=== PATIENT | female | born 1955 | race Caucasian/White ===

== ENCOUNTER → 2020-11-09 | Outpatient (CLI) | payer BC ==
[2020-11-09 10:15] LABS: Basophils % (A) 1 %; Eosinophils # (A) 0.3 k/uL (0-0.7); Eosinophils % (A) 5 %; HCT 44.3 % (34.0-46.0); Lymphocytes # (A) 1.3 k/uL (1.0-4.8); Lymphocytes % (A) 24 %; MCH 30.1 pg (25.0-35.0); MCHC 33.8 g/dL (31.0-37.0); MCV 89.1 fL (80.0-100.0); Mean Platelet Volume 6.5; Monocytes # (A) 0.3 k/uL (0-1.0); Monocytes % (A) 6 %; Neutrophils # (A) 3.3 k/uL (1.3-7.7); Neutrophils % (A) 63 %; Platelet Count 332 k/uL (150-450); RBC 4.98 m/uL (3.80-5.40); RDW 12.8 % (11.5-15.5); WBC 5.3 k/uL (3.8-10.6)
[2020-11-09 10:29] LABS: Prothrombin Time 10.7 sec (9.0-12.0)
[2020-11-09 10:37] LABS: Potassium 4.2 mmol/L (3.5-5.1)
== END | disposition home or self-care (01) ==
LOC: LABPAT 09:06
PROVIDERS: ATTEND Orthopaedic Surgery
DX: Z01.812 Encounter for preprocedural laboratory examination (principal); M17.12 Unilateral primary osteoarthritis, left knee; Z22.322 Carrier or suspected carrier of Methicillin resistant Staphylococcus aureus; R94.31 Abnormal electrocardiogram [ECG] [EKG]
CPT/HCPCS: 36415; 80051; 85025; 85610; 87070; 93005

== ENCOUNTER 2020-11-22 07:09 | Day surgery (SDC) | payer BC, OTHER ==
[2020-11-10 16:15] VITALS: BMI 35.4
--- NOTE | 2020-11-21 13:57 | HP ---
HISTORY AND PHYSICAL CHIEF COMPLAINT: Left knee pain. HISTORY OF PRESENT ILLNESS: Patient is a 65-year-old retired female who presents with progressive left knee pain for the past several years, worsening recently. She is having pain with normal activities. She notes giving way. She has swelling and stiffness. She has tried medications, injections, along with exercise programs without much relief. She has also tried weight loss. PAST MEDICAL HISTORY: Significant for hypertension and peptic ulcer disease. PAST SURGICAL HISTORY: Significant for left knee arthroscopy, right shoulder surgery, left foot surgery, section, and appendectomy. CURRENT MEDICATIONS: Carafate, lisinopril, Tylenol with codeine. ALLERGIES: SHE HAS ALLERGIES TO DILAUDID AND BIAXIN. FAMILY HISTORY: Significant for diabetes and cancer along with heart disease. SOCIAL HISTORY: Negative for current tobacco or alcohol use. REVIEW OF SYSTEMS: Sixteen-point review of systems otherwise reviewed and is noncontributory. PHYSICAL EXAMINATION: On examination, the patient is approximately 5 foot 9, 240 pounds of endomorphic habitus. HEENT exam is nonfocal. Neck is supple. She has painless passive motion of the left hip. Straight leg raise is negative. Active motion left knee -14 to 100 degrees of flexion. She has a moderate effusion. She is tender about the medial joint line. Collaterals are stable, Raghav is negative, Breana's is equivocal. She has genu varum alignment. Her distal neurovascular exam appears intact in the left lower extremity. Weightbearing notch, lateral and Merchant views of the left knee obtained in the office show severe medial and patellofemoral compartment narrowing with [id number] changes along with subchondral sclerosis and spurring. IMPRESSION: 1. Left knee severe medial and patellofemoral compartment osteoarthrosis. 2. Increased body mass index. RECOMMENDATIONS: I talked to the patient at length regarding her condition and treatment options. At this point, she remains quite symptomatic, having pain and mechanical symptoms related to her osteoarthrosis despite extensive conservative measures. After thorough discussion, she opts to proceed with surgery. We will plan to proceed with left total knee arthroplasty. We will institute DVT prophylaxis postoperatively. Risks and benefits were discussed at length in layman's terms. MMODL / IJN: [id number] /
[~2020-11-22 07:09] MED LIST: ACETAMINOPHEN TAB 500 MG TAB PO PRN; DEXAMETHASONE SOD PHOSPHATE 4 MG/ML 1 ML VIAL IV ONE; MELOXICAM 7.5 MG TAB PO PRN; ONDANSETRON 4 MG/2 ML VIAL IVP ONE; ROPIVACAINE/EPI/CLONIDINE/KET 50 ML SYRINGE MISCELLANE PRN; TRANEXAMIC ACID 1,000 MG in SODIUM CHLORIDE 0.9% 100 ML IVPB PRN
[2020-11-22] MEDS ORDERED: LIDOCAINE 1% (10MG/ML) FOR IV START INTRADERMA ONE (08:50)
[2020-11-22] MEDS: LACTATED RINGERS 1,000 ML IV SCH ×2 (08:57→09:42)
[2020-11-22] MEDS: MIDAZOLAM 2 MG/2 ML VIAL IV PRN ×2 (09:03→09:15)
[2020-11-22] MEDS: fentaNYL (PF) 50 MCG/ML 2 ML AMP IV PRN ×2 (09:05→09:16)
[2020-11-22] MEDS ORDERED: PROPOFOL 10 MG/ML 20 ML VIAL IV ONE (09:42)
[2020-11-22] MEDS ORDERED: TRANEXAMIC ACID 1,000 MG/10 ML VIAL ONE (09:42)
[2020-11-22] MEDS ORDERED: LIDOCAINE 1% INJ 10MG/ML (20 ML MDV) ONE (09:42)
[2020-11-22] MEDS ORDERED: LABETALOL 5 MG/ML VIAL MDV ONE (09:42)
[2020-11-22] MEDS ORDERED: ROCURONIUM 10 MG/ML (5 ML VIAL) IV ONE (09:42)
[2020-11-22] MEDS ORDERED: GLYCOPYRROLATE 0.2 MG/ML 2 ML VIAL ONE (09:42)
[2020-11-22] MEDS ORDERED: SUCCINYLCHOLINE CHLORIDE 100 MG/5 ML SYR IV ONE (09:42)
[2020-11-22] MEDS ORDERED: ROPIVACAINE 5 MG/ML 30 ML VIAL ONE (09:42)
[2020-11-22] MEDS ORDERED: fentaNYL (PF) 50 MCG/ML 2 ML AMP ONE (09:42)
[2020-11-22] MEDS ORDERED: SODIUM CHLORIDE 0.9% (PF) 10 ML VIAL ONE (09:42)
[2020-11-22] MEDS ORDERED: SODIUM CHLORIDE 0.9% 100 ML BAG ONE (09:42)
[2020-11-22] MEDS ORDERED: NEOSTIGMINE 1 MG/ML 10 ML VIAL ONE (09:42)
[2020-11-22] MEDS ORDERED: ceFAZolin 3,000 MG in SODIUM CHLORIDE 0.9% IRRIGATIO 3,000 ML IRRIGATION ONE (10:12)
[2020-11-22] MEDS ORDERED: NALOXONE 0.4 MG/ML 1 ML VIAL IV PRN (11:32)
[2020-11-22] MEDS ORDERED: HYDROcodone/APAP 5-325MG 1 EACH TAB PO PRN (11:32)
--- NOTE | 2020-11-22 11:59 | P.OP ---
Date of Procedure: 11/22/20 Preoperative Diagnosis: Left knee severe tricompartmental osteoarthrosis Postoperative Diagnosis: Same Procedure(s) Performed: Left total knee arthroplastycementedposterior stabilized Implants: Depuy Attune size 6 cemented femoral component, size 5 cemented tibial component with a 50 mm stem extension, 9 mm articular surface, 38 mm cemented patellar component. This is a posterior stabilized implant. Anesthesia: [facility] Surgeon: Josué Woodard Elevator Conductor #1: James Sabillon Estimated Blood Loss (ml): 50 Pathology: other (Bone fragments) Condition: stable Disposition: PACU Indications for Procedure: The patient's a 65-year-old female who presents with progressive left knee pain secondary to osteoarthrosis despite conservative measures. A discussion of the risks and benefits of operative intervention versus continued conservative measures was made with patient To proceed with surgery. Operative risks to include infection, neurovascular injury, development of blood clots, possible component loosening, possible component failure need for subsequent procedures was discussed. Informed consent was obtained. Operative Findings: As below Description of Procedure: The patient was brought to the operating room, and after induction of spinal anesthesia the left lower extremity was prepped and draped in a normal fashion. The tourniquet was inflated to 270 mm marker. A longitudinal incision extending 3 finger breaths above the superior pole of patella extending to the medial aspect the tibial tubercle was then made. The skin and subcutaneous tissues were divided sharply. Electrocautery was used for hemostasis. A medial parapatellar arthrotomy was performed. The medial soft tissues to include the superficial and deep portions of the medial collateral ligament were elevated subperiosteally. The patella was everted. A portion of the retropatellar fat pad was excised sharply. The anterior cruciate ligament was sacrificed. Blunt retractors were placed. A starting hole was made in the distal femur 1 cm anterior to the posterior cruciate ligament origin. An intramedullary femoral guide was then inserted planning on 5 valgus distal cut with 9 mm distal resection. The cutting block was pinned in place. The distal cut was then made. The posterior referencing sizing guide was utilized. I felt size 6 was most appropriate. 3 of external rotation was built into the system and verified off the trans-epicondylar axis and the posterior condyles. The cutting block was pinned in place. The anterior, posterior, and chamfer cuts then made. Bone fragments were removed. The intercondylar guide was placed and the notch cut was made with a sagittal saw. The bone block was removed in one fragment. The trial component was then placed. There is good anterior to posterior and medial to lateral fit. The distal peg holes were drilled. The trial component was removed. Attention was then paid towards preparing the proximal femur. An extra medullary guide was utilized in line with the tibial shaft and second metatarsal distally. I planned on 2 mm resection from the medial compartment. The cutting block was pinned in place. The proximal tibial cut was then made. The bone was removed in one fragment. The remnants of the medial and lateral menisci were excised at the capsular junction with electrocautery. The tibia sized most appropriately at size 5. The trial femoral and tibial components were placed along with a 9 mm articular surface. I was able to obtain full flexion and extension with internal and external rotation. After several flexion and extension cycles, the tibial rotation was marked with electrocautery line with the medial one third of the tibial tubercle. Attention was then paid towards preparing the patella. A patella reamer was utilized taking stem to 14 mm of bone stock. A good flush cut was made. The patella sized most appropriately 38 mm. The peg holes were drilled. The trial components placed. I had good patellofemoral tracking with no hands technique. The trial components were then removed. The tibia was prepared in the appropriate rotation with appropriate drill and keel punch planning on a 50 mm stem extension. The posterior osteophytes were removed with a curved osteotome. The flexion and extension gaps were checked and felt to be symmetric at 9 mm. A trial components were then removed. The bony surfaces were prepared with pulsatile lavage and dried. The tibial component was then cemented place was fully seated. Excess cement was removed. The femoral component cemented place and was fully seated. Excess cement was removed. The trial 9 mm articular surface was placed and the knee was put in full extension. The patella component was cemented place. After the cement had sufficiently hardened, the knee was again taken through a range of motion. Again I was able to obtain full flexion and extension with varus and valgus stress. The trial 9 mm articular surface was removed and the final one inserted. This was fully seated. Care was taken to avoid any soft tissue interposition. Pulsatile lavage was again utilized. The medial parapatellar arthrotomy was closed with #2 Ethibond suture. The tourniquet was deflated with approximately 70 minutes total tourniquet time. Final hemostasis was obtained with the cautery. There was minimal bleeding therefore a deep drain was not placed. The subcutaneous tissues were reapproximated with interrupted 2-0 Vicryl sutures. The skin was reapproximated with jean. Skin tape and adhesive was applied. A sterile dressing was applied. The patient was awoken from sedation and transferred to recovery room in good condition. Blood loss was estimated at 50 mL. No complications were incurred. Sponge and needle counts were correct at the end of the case. James CASTRO assisted during the major components of this case to include exposure, bone resection, implantation, and closure.
[2020-11-22] MEDS: fentaNYL (PF) 50 MCG/ML 2 ML AMP IVP ONE ×2 (12:06→12:12)
[2020-11-22] MEDS ORDERED: ROPIVACAINE 0.2%-NS ON-Q PUMP 1,090 MG, EMPTY PAIN BALL 1 EACH MISCELLANE PRN (12:15)
[2020-11-22] MEDS: MORPHINE SULFATE 4 MG/ML SYRINGE IVP ONE ×2 (12:29→12:38)
--- NOTE | 2020-11-22 12:30 | XR ---
EXAMINATION TYPE: XR knee limited LT DATE OF EXAM: 11/22/2020 COMPARISON: NONE TECHNIQUE: Two views submitted HISTORY: Post op FINDINGS: There is a prosthetic knee in near anatomic alignment. There is soft tissue edema and emphysema. Perez rgical jean noted. IMPRESSION: 1. Postoperative change. Appears in near-anatomic alignment
[2020-11-22] MEDS ORDERED: MORPHINE SULFATE 4 MG/ML SYRINGE IVP PRN (12:38)
[2020-11-22] MEDS ORDERED: hydrOXYzine pamoate 25 MG CAP PO PRN (12:39)
[2020-11-22] MEDS ORDERED: LACTATED RINGERS 1,000 ML IV ONE (13:54)
[2020-11-22] MEDS: HYDROcodone/APAP 7.5-325MG 1 EACH TAB PO PRN ×2 (13:57→19:41)
--- NOTE | 2020-11-22 15:19 | P.ANPRN ---
Procedure Note - Anesthesia - Nerve Block Performed Left Adductor Canal Infusion Time Out Performed: Yes (901) Date of Procedure: 11/22/20 Procedure Start Time: 09:03 Procedure Stop Time: 09:07 Location of Patient: PreOp Indication: Acute Post-Operative Pain, Requested by Surgeon Specifically requested for management of pain by DrAllyssa: Josué Woodard Sedation Type: Sedate with meaningful contact maintained Preparation: Sterile Prep Position: Supine Catheter: Indwelling Needle Types: Pajunk Needle Gauge: 21 Ultrasound used to visualize needle placement: Yes Ultrasound used to observe medication spread: Yes Injectate: 0.5% Ropivacaine (see comment for volume) (15cc + NACL PF 5cc) Blood Aspirated: No Pain Paresthesia on Injection Noted: No Resistance on Injection: Normal Image Stored and Saved: Yes Events: Uneventful and Well Tolerated Left iPack Single Time Out Performed: Yes (901) Date of Procedure: 11/22/20 Procedure Start Time: 09:08 Procedure Stop Time: 09:11 Location of Patient: PreOp Indication: Acute Post-Operative Pain, Requested by Surgeon Specifically requested for management of pain by Dr.: Josué Woodard Sedation Type: Sedate with meaningful contact maintained Preparation: Sterile Prep Position: Supine Catheter: None Needle Types: Pajunk Needle Gauge: 21 Ultrasound used to visualize needle placement: Yes Ultrasound used to observe medication spread: Yes Injectate: 0.5% Ropivacaine (see comment for volume) (15cc + NACL PF 15cc) Blood Aspirated: No Pain Paresthesia on Injection Noted: No Resistance on Injection: Normal Image Stored and Saved: Yes Events: Uneventful and Well Tolerated
--- NOTE | 2020-11-22 15:42 | P.CONS ---
History of Present Illness - Reason for Consult Consult date: 11/22/20 Medical management - Chief Complaint Left knee arthroplasty - History of Present Illness Patient is a 65-year-old female with a known history of hypertension, osteoarthritis and GERD and history of migraine headaches was admitted to the hospital for elective left total arthroplasty. Patient tolerated the procedure very well. Patient came back from surgery. Drowsy but awake alert oriented 3. No complaints of chest pain or shortness of breath. No headache or dizziness or lightheadedness. Systolic blood pressures in 130s. Denied any dysuria or hematuria. No cough or sputum production. Vitals blood pressure is 133/61 pulse 53 respiration 16 and pulse ox 94% on room air. Review of Systems Constitutional: Patient denies any fever or chills . No generalized weakness or weight loss. Abdomen: Patient denied nausea vomiting and diarrhea and abdominal pain. Cardiovascular: Patient denies any chest pain or short of breath no palpitations . Respiratory: patient denied any cough is from production. No shortness of breath Neurologic: Patient denied any numbness or tingling headache. Musculoskeletal: Patient denies any complaints of joint swelling or deformity. Left knee pain. Skin: Negative Psychiatric: Negative Endocrine: No heat or cold intolerance. No recent weight gain. Genitourinary: No dysuria or hematuria. All other 14 point ROS negative except the above Past Medical History Past Medical History: GERD/Reflux, Hypertension, Osteoarthritis (OA) Additional Past Medical History / Comment(s): hx migraines, heart murmer, varicose veins, environmental allergies, stress incontinence History of Any Multi-Drug Resistant Organisms: None Reported Past Surgical History: Appendectomy, Section, Heart Catheterization, Orthopedic Surgery Additional Past Surgical History / Comment(s): C/S x 5, left foot surgery for fx x 3, rt shoulder arthroscopy, left knee arthroscopy. pt states heart cath and stress test 25 yrs ago Past Anesthesia/Blood Transfusion Reactions: No Reported Reaction Smoking Status: Never smoker - Past Family History Mother Family Medical History: Cancer Brother(s) Family Medical History: Cancer Medications and Allergies Home Medications Medication Instructions Recorded Confirmed Type Acetaminophen-Codeine 300-30mg 1 - 2 tab PO DIRECTED PRN 11/10/20 11/10/20 History [Tylenol w/codeine #3] Lisinopril-Hctz 20-12.5 mg 1 tab PO HS 11/10/20 11/10/20 History [Zestoretic 20-12.5] Loratadine-Pseudoeph 10-240 mg 1 tab PO DAILY PRN 11/10/20 11/10/20 History [Claritin-D 24 Hour] Multivitamins, Thera [Multivitamin 1 tab PO DAILY 11/10/20 11/10/20 History (formulary)] Omeprazole [PriLOSEC] 20 mg PO AC-BRKFST 11/10/20 11/10/20 History Sucralfate [Carafate] 0.5 gm PO DIRECTED PRN 11/10/20 11/10/20 History Allergies Allergy/AdvReac Type Severity Reaction Status Date / Time clarithromycin [From Biaxin] Allergy Nausea Verified 11/22/20 08:05 hydromorphone [From Dilaudid] Allergy passed Verified 11/22/20 08:05 out, blood pressure dropped Physical Exam Vitals: Vital Signs Temp Pulse Pulse Resp BP Pulse Ox 11/22/20 13:15 53 L 16 133/61 94 L 11/22/20 13:06 41 L 16 135/63 100 11/22/20 12:48 52 L 18 147/74 99 11/22/20 12:30 50 L 18 137/65 99 11/22/20 12:15 52 L 18 136/65 99 11/22/20 11:55 97 F L 82 18 128/97 97 11/22/20 09:27 67 17 171/80 100 11/22/20 08:36 98.2 F 68 16 155/79 98 Intake and Output 11/21/20 11/22/20 11/22/20 22:59 06:59 14:59 Intake Total 1326 Output Total 50 Balance 1276 Intake: IV 1326 Output: Estimated Blood Loss 50 Other: Weight 110.4 kg PHYSICAL EXAMINATION: Patient is lying in the bed comfortably, no acute distress, awake alert and oriented.. HEENT: Normocephalic. Neck is supple. Pupils reactive. Nostrils clear. Oral cavity is moist. Neck reveals no JVD, carotid bruits, or thyromegaly. CHEST EXAMINATION: Trachea is central. Symmetrical expansion. Bibasilar diminishes sounds. Lung hoang clear to auscultation and percussion. CARDIAC: Normal S1, S2 with no gallops. Systolic murmur ABDOMEN: Soft. Bowel sounds normal. No organomegaly. No abdominal bruits. Extremities: reveal no edema. No clubbing or cyanosis Neurologically awake, alert, oriented x3 with well-coordinated movements. No focal deficits noted Skin: No rash or skin lesions. Psychiatric: Coperative. Nonsuicidal Musculoskeletal: No joint swelling or deformity. Left knee surgical site is packed. Pain pump in place.. Assessment and Plan Assessment: Left total knee arthroplasty left total knee arthroplasty postoperative day 0 Hypertension. Blood pressure is controlled. End with lisinopril and hold hydrochlorothiazide at this time. GERD. Continue with PPI Left knee osteoarthritis History of right shoulder arthroplasty Obesity with BMI 35.9 History of migraine headaches DVT prophylaxis Plan: Patient will be continued on incentive spirometry, pain management and bowel regimen. Encourage ambulation. Continue with lisinopril starting from tomorrow and hold hydrochlorothiazide while in the hospital. Continue PPI. Continue DVT prophylaxis as per primary team. Monitor CBC and BMP tomorrow. Continue to follow with you and further recommendations based on the clinical course. Thank you for your consult.
[2020-11-22] MEDS: PANTOPRAZOLE 40 MG TABLET PO SCH (17:37)
[2020-11-22] MEDS ORDERED: SENNOSIDES-DOCUSATE SODIUM 1 EACH TAB PO SCH (21:00)
[2020-11-23] MEDS: HYDROcodone/APAP 7.5-325MG 1 EACH TAB PO PRN ×3 (01:20→14:21)
[2020-11-23 02:35] VITALS: RESP 18
[2020-11-23] MEDS: LACTATED RINGERS 1,000 ML IV SCH (06:17)
[2020-11-23 07:50] VITALS: BP 121/71; PULSE 64; TEMP 98.3
[2020-11-23] MEDS: PANTOPRAZOLE 40 MG TABLET PO SCH (08:22)
[2020-11-23] MEDS ORDERED: RIVAROXABAN 10 MG TAB PO SCH (09:00)
[2020-11-23] MEDS ORDERED: MULTIVITAMINS, THERA 1 EACH TAB PO SCH (09:00)
[2020-11-23] MEDS ORDERED: lisinopriL 20 MG TAB PO SCH (09:00)
--- NOTE | 2020-11-23 11:17 | P.PN ---
Subjective Progress Note Date: 11/23/20 Principal diagnosis: Status post left total knee arthroplasty Patient is evaluated today for second, suggesting comfortably in her hospital chair. She is having some generalized discomfort around the knee. She denies any headaches, lightheadedness, chest pain and limited well with therapy. She is urinating with no difficulty. Objective - Vital Signs Vital signs: Vital Signs Temp 98.3 F 11/23/20 07:49 Pulse 64 11/23/20 07:49 Resp 18 11/23/20 07:49 BP 121/71 11/23/20 07:49 Pulse Ox 96 11/23/20 07:49 Intake & Output 11/22/20 11/23/20 11/23/20 18:59 06:59 18:59 Intake Total 1326 Output Total 50 Balance 1276 Weight 110.4 kg Intake: IV 1326 Output: Estimated Blood Loss 50 Other: # Voids 3 - Exam Left lower extremity: Incision is clean, dry, and intact. The exofin fusion tape is in good condition. There is minimal soft tissue swelling and ecchymosis surrounding the medial and lateral aspects of the incision. Calf is soft, no tenderness with palpation. Plantar flexion, dorsiflexion, EHL, FHL are intact. Sensory exam to light touch throughout the extremity is intact, dorsal pedis pulses 2+. Assessment and Plan Assessment: Postoperative day #1 status post left total knee arthroplasty Plan: Pain control, plan for discharge home on oral medication GI and DVT prophylaxis, Eliquis 2.5 mg twice a day Wound care instructions were discussed Home physical therapy and nursing after discharge Medical recommendations Plan for discharge home today Time with Patient: Less than 30
--- NOTE | 2020-11-23 11:25 | P.DS ---
Providers Date of admission: 11/22/2020 Expected date of discharge: 11/23/20 Attending physician: Josué Woodard Consults: 11/22/20 11:36 Consult Physician Routine Consulting Provider: Case Hernandez Consult Reason/Comments: Medical Management s/p left total knee arthroplasty Do you want consulting provider notified?: Yes Primary care physician: Katty Peter Hospital Course: Date of admission: 11/22/2020 Date of discharge: 11/23/2020 Admission diagnosis: Status post left total knee arthroplasty Discharge diagnosis: Same Attending physician: Dr. Woodard Surgical procedures: Left total knee arthroplasty Brief history: Patient is a 65-year-old female with a history of progressive primary left knee osteoarthritis. At this point patient has failed conservative treatment measures and has opted to proceed with a elective left total knee arthroplasty. Hospital course: Details of patient's surgery can be found in operative report. Patient tolerated the procedure well and was subsequently transported to orthopedic floor. Patient's orthopeidc and medical care was provided daily. Patient had daily laboratory tests performed for evaluation of overall blood counts. Patient had daily physical therapy to include strengthening range of motion as well as education with walker ambulation. Patient was treated with Xarelto for their postoperative DVT prophylaxis during their inpatient stay. Patient was noted to have a relatively uneventful postoperative course. Patient reported satisfactory pain control with oral pain medications by postoperative day 0. Patient showed satisfactory progress with physical therapy. Patient moved steadily through the program and had no difficulty meeting the goals by postoperative day 1. Given patient's otherwise satisfactory course and having met physical therapy goals, plan is to discharge patient home on postoperative day 1. Discharge condition/disposition: Patient will be discharged home in stable condition. Discharge medications: Instructions are given on resumption of patient's normal daily medications per primary care recommendation, in addition patient will be prescribed Coolidge 7.5 mg/325 mg, Eliquis 2.5 mg, Flexeril 5 mg. Discharge instructions: 1. Wound care and infection precautions, keep incision dry and covered while showering, no lotions, creams, moisturizers. No soaking, tubs, pools, hottubs. Do not scrub over the incision. 2. Weight-bear as tolerated with walker / cane until follow-up. 3. Ice and elevate when necessary. Do not exceed 20 minutes per hour with ice pack. 4. Utilize compression sleeve until seen at first follow up appointment. 5. Visiting nursing care. 6. Home physical therapy including home CPM. 7. Pain meds and anticoagulants per prescription. 8. Pain medication has potential to cause constipation. Increase oral fluid and fiber intake. Contact primary care provider if you have not had a bowel movement within 48 hours after discharge 9. No anti-inflammatory medication until discussed at first post operative visit, this including Motrin, Aleve, Mobic, Diclofenac 10. Follow up in office at 2 weeks postop with Kelby Jewell PA-C/James Clemente 11. Follow up with your primary care doctor 7-10 days after discharge. 12. Contact [facility] with any questions, . Procedures: Left total knee arthroplasty Patient Condition at Discharge: Good Plan - Discharge Summary Discharge Rx Participant: No New Discharge Prescriptions: New Cyclobenzaprine [Flexeril] 5 mg PO BID PRN #21 tablet PRN Reason: Muscle Spasm Apixaban [Eliquis] 2.5 mg PO BID #60 tab HYDROcodone/APAP 7.5-325MG [Coolidge 7.5] 1 - 2 each PO Q6HR PRN #42 tab PRN Reason: Pain No Action Sucralfate [Carafate] 0.5 gm PO DIRECTED PRN PRN Reason: gerd Acetaminophen-Codeine 300-30mg [Tylenol w/codeine #3] 1 - 2 tab PO DIRECTED PRN PRN Reason: Pain Omeprazole [PriLOSEC] 20 mg PO AC-BRKFST Multivitamins, Thera [Multivitamin (formulary)] 1 tab PO DAILY Lisinopril-Hctz 20-12.5 mg [Zestoretic 20-12.5] 1 tab PO HS Loratadine-Pseudoeph 10-240 mg [Claritin-D 24 Hour] 1 tab PO DAILY PRN PRN Reason: Allergy Symptoms Discharge Medication List Acetaminophen-Codeine 300-30mg [Tylenol w/codeine #3] 1 - 2 tab PO DIRECTED PRN 11/10/20 [History] Lisinopril-Hctz 20-12.5 mg [Zestoretic 20-12.5] 1 tab PO HS 11/10/20 [History] Loratadine-Pseudoeph 10-240 mg [Claritin-D 24 Hour] 1 tab PO DAILY PRN 11/10/20 [History] Multivitamins, Thera [Multivitamin (formulary)] 1 tab PO DAILY 11/10/20 [History] Omeprazole [PriLOSEC] 20 mg PO AC-BRKFST 11/10/20 [History] Sucralfate [Carafate] 0.5 gm PO DIRECTED PRN 11/10/20 [History] Apixaban [Eliquis] 2.5 mg PO BID #60 tab 11/23/20 [Rx] Cyclobenzaprine [Flexeril] 5 mg PO BID PRN #21 tablet 11/23/20 [Rx] HYDROcodone/APAP 7.5-325MG [Coolidge 7.5] 1 - 2 each PO Q6HR PRN #42 tab 11/23/20 [Rx] Follow up Appointment(s)/Referral(s): [facility],Equipment [NON-STAFF] - (*Please call [facility] once home to arrange delivery of the Continous Passive Motion (CPM) machine.) [facility], [NON-STAFF] - (*[facility] will call you tomorrow to arrange the time for your first in home Physical Therapy appointment. ) Elvin Jewell PAC [PHYSICIAN FLIGHT ENGINEER HELIC[employer]TER] - 2 Weeks Activity/Diet/Wound Care/Special Instructions: Orthopedic Discharge Instructions: 1. Wound care and infection precautions, keep incision dry and covered while showering, no lotions, creams, moisturizers. No soaking, pools, hot tubs. Do not scrub over incision. 2. Weight-bear as tolerated with walker / cane until follow-up. 3. Ice and elevate when necessary. Do not exceed 20 minutes per hour with ice pack. 4. Utilize compression sleeve until seen at first follow up appointment. 5. Pain meds and anticoagulants per prescription. 6. Pain medication has potential to cause constipation. Increase oral fluid and fiber intake. Contact primary care provider if you have not had a bowel movement within 48 hours after discharge. 7. No anti-inflammatory medication until discussed at first post operative visit, this including Motrin, Aleve, Mobic, Diclofenac. 8. Follow up in office at 2 weeks postop with Kelby Jewell PA-C/James Sabillon PA-C 9. Follow up with your primary care doctor 7-10 days after discharge. 10. Contact [facility] with any questions, . Discharge Disposition: HOME WITH HOME HEALTH SERVICES
[2020-11-23 13:56] LABS: African American GFR (CKD) 78.3 (60.0-200.0); BUN/Creat Ratio 22.22 Ratio (12.00-20.00); Calcium 8.8 mg/dL (8.7-10.3); Non-African American GFR(CKD) 67.6 (60.0-200.0); Potassium 4.5 mmol/L (3.5-5.5)
--- NOTE | 2020-11-23 14:13 | P.PN ---
Progress Note - Text Patient was seen at 7 AM in the morning Postoperative day # 1 status post total knee arthroplasty, on adductor canal perineural catheter placed for postoperative analgesia. Ropivacaine 0.2% 8 mL per hour through ON-Q pump continuous infusion. Pain is well controlled. On visual analog scale 2/10 Patient is taking PRN oral pain medications. Catheter site: Looks Ok. There is no erythema or tenderness. Continue with the current pain management plan and will follow.
[2020-11-23 14:16] LABS: Basophils # (A) 0.02 X 10*3/uL (0.00-0.10); Basophils % (A) 0.2 %; Eosinophils # (A) 0.04 X 10*3/uL (0.04-0.35); Eosinophils % (A) 0.4 %; HCT 41.2 % (37.2-46.3); HGB 13.2 g/dL (12.0-15.0); Lymphocytes # (A) 1.32 X 10*3/uL (0.90-5.00); Lymphocytes % (A) 12.1 %; MCH 29.5 pg (27.0-32.0); MCV 92.2 fL (80.0-97.0); Mean Platelet Volume 9.8 fL (9.5-12.2); Monocytes # (A) 1.28 X 10*3/uL (0.20-1.00); Monocytes % (A) 11.8 %; Neutrophils # (A) 8.19 X 10*3/uL (1.80-7.70); Neutrophils % (A) 75.1 %; Platelet Count 311 X 10*3/uL (140-440); RBC 4.47 X 10*6/uL (4.10-5.20); WBC 10.89 X 10*3/uL (4.50-10.00)
--- NOTE | 2020-11-23 16:20 | P.PN ---
Subjective Progress Note Date: 11/23/20 - Reason for Consult Consult date: 11/22/20 Medical management - Chief Complaint Left knee arthroplasty - History of Present Illness Patient is a 65-year-old female with a known history of hypertension, osteoarthr itis and GERD and history of migraine headaches was admitted to the hospital for elective left total arthroplasty. Patient tolerated the procedure very well. Patient came back from surgery. Drowsy but awake alert oriented 3. No complaints of chest pain or shortness of breath. No headache or dizziness or lightheadedness. Systolic blood pressures in 130s. Denied any dysuria or hematuria. No cough or sputum production. Vitals blood pressure is 133/61 pulse 53 respiration 16 and pulse ox 94% on room air. 11/23/2020 Patient is seen and evaluated and follow-up with no acute overnight issues. Patient continues with some left knee discomfort although states is much improved and was able to work efficiently with physical therapy and will be continued with some former rehab in the outpatient setting. Patient denies any shortness of breath or chest pain and states oral intake is fair with no reports of nausea or vomiting noted. Patient is passing gas. Surgical dressing is dry and intact with epidural pump noted. White blood count is 10.89 which is most likely reactive, hemoglobin is stable at 13.2. Sodium is 138, potassium is 4.5, current creatinine is 0.9. Review of systems: Constitutional: No reports of fatigue, fever, or chills Cardiovascular: No reports of chest pain or palpitations Respiratory: No reports of shortness of breath or cough GI: No reports of nausea, vomiting, or diarrhea : No reports of dysuria or retention Neurovascular: No reports of weakness or numbness, reports some left knee discomfort All medications have been reviewed Objective - Vital Signs Vital signs: Vital Signs Temp 98.3 F 11/23/20 07:49 Pulse 64 11/23/20 07:49 Resp 18 11/23/20 07:49 BP 121/71 11/23/20 07:49 Pulse Ox 96 11/23/20 07:49 Intake & Output 11/22/20 11/23/20 11/23/20 18:59 06:59 18:59 Intake Total 1326 Output Total 50 Balance 1276 Weight 110.4 kg Intake: IV 1326 Output: Estimated Blood Loss 50 Other: # Voids 3 - Exam Patient is sitting up in the chair comfortably, no acute distress, awake alert and oriented.. Bilateral lower extremities elevated HEENT: Normocephalic. Neck is supple. Pupils reactive. Nostrils clear. Oral cavity is moist. Neck reveals no JVD, carotid bruits, or thyromegaly. CHEST EXAMINATION: Trachea is central. Symmetrical expansion. Bibasilar diminished sounds. Lung hoang clear to auscultation and percussion. CARDIAC: Normal S1, S2 with no gallops. Systolic murmur ABDOMEN: Soft. Bowel sounds normal. No organomegaly. No abdominal bruits. Extremities: reveal no edema. No clubbing or cyanosis Neurologically awake, alert, oriented x3 with well-coordinated movements. No focal deficits noted Skin: No rash or skin lesions. Psychiatric: Cooperative. Non-suicidal Musculoskeletal: No joint swelling or deformity. Left knee surgical site dressing is dry and intact. Pain pump in place.. - Labs CBC & Chem 7: 11/23/20 06:49 11/23/20 06:49 Assessment and Plan Assessment: Left total knee arthroplasty left total knee arthroplasty postoperative day 1 Hypertension. Blood pressure is controlled. Patient was continued on lisinopril and held hydrochlorothiazide at this time Mild leukocytosis most likely reactive status post surgery GERD. Continue with PPI Left knee osteoarthritis History of right shoulder arthroplasty Obesity with BMI 35.9 History of migraine headaches DVT prophylaxis Plan: Patient will be continued on incentive spirometry, pain management and bowel regimen. Encourage ambulation. Patient was able to work with physical therapy today and did well and will be having rehab in the outpatient setting. Patient instructed to monitor blood pressure and resume home blood pressure medications tomorrow Continue PPI. Continue DVT prophylaxis as per primary team. Repeat labs within normal limits with white blood count slightly elevated at 10. 89 which is most likely reactive status post surgery. Continue to follow with you during hospitalization and further recommendations based on the clinical course. Patient is being discharged today. Thank you for this consultation.
== END 2020-11-23 14:30 | disposition home health service (06) ==
LOC: OR 07:09 → 4SSUR 13:24 → OR 11-23 14:30
PROVIDERS: ATTEND Orthopaedic Surgery
DX: M17.12 Unilateral primary osteoarthritis, left knee (principal); M25.762 Osteophyte, left knee; I10 Essential (primary) hypertension; K21.9 Gastro-esophageal reflux disease without esophagitis; Z87.11 Personal history of peptic ulcer disease; Q05.9 Spina bifida, unspecified; Z98.891 History of uterine scar from previous surgery; Z90.89 Acquired absence of other organs; Z82.49 Family history of ischemic heart disease and other diseases of the circulatory system; F17.200 Nicotine dependence, unspecified, uncomplicated; Z98.890 Other specified postprocedural states; Z79.899 Other long term (current) drug therapy; I83.90 Asymptomatic varicose veins of unspecified lower extremity; N39.3 Stress incontinence (female) (male); Z80.9 Family history of malignant neoplasm, unspecified; Z88.1 Allergy status to other antibiotic agents; Z88.5 Allergy status to narcotic agent
CPT/HCPCS: 97161; 64999; 64448; 76942; 80048; 85025; 88300; 87635; 73560; 27447; C1713; C1776; J2250; J2270; J1100; J2710; J0690 ×3; J2405; J2001; J3010; J2795 ×2; J0330; J2704

== ENCOUNTER → 2021-06-09 | Outpatient (CLI) | payer BC, MEDICARE ==
--- NOTE | 2021-06-11 01:52 | MR ---
EXAMINATION TYPE: MR shoulder LT wo con DATE OF EXAM: 06/09/2021 COMPARISON: None HISTORY: Left shoulder pain Multiplanar multiecho imaging of the left shoulder without contrast. Biceps tendon is intact. Subscapularis tendon is intact. Glenoid hanna appear intact. There is mild s houlder joint effusion. There are small subdeltoid effusion. There is thickening and increased signal in the supraspinatus tendon at the greater tuberosity of the humerus. There are full thickness tears at the attachment on the greater tuberosity. There is some spurring and edema at the AC joint. There is subacromial fluid accumulation. There is no evidence of a fracture. IMPRESSION: Joint effusion and subdeltoid effusion consistent with synovitis. Full-thickness rotator cuff tear wi th some mild retraction of the supraspinatus tendon. No fracture seen. There is some hypertrophic ost eoarthritis at the AC joint minimal subacromial impingement.
== END | disposition home or self-care (01) ==
LOC: RADMRIMAIN 12:44
PROVIDERS: ATTEND Orthopaedic Surgery
DX: M75.112 Incomplete rotator cuff tear or rupture of left shoulder, not specified as traumatic (principal); M25.412 Effusion, left shoulder; M19.012 Primary osteoarthritis, left shoulder; M25.812 Other specified joint disorders, left shoulder

== ENCOUNTER 2021-07-14 09:10 | Day surgery (SDC) | payer BC, MEDICARE ==
--- NOTE | 2021-07-13 13:32 | HP ---
HISTORY AND PHYSICAL CHIEF COMPLAINT: Left shoulder pain. HISTORY OF PRESENT ILLNESS: The patient is a 66-year-old retired female who presents with left shoulder pain after a recent fall at home. She is having pain with overhead use and at night. She notes significant weakness. She denies previous problems. She has tried medications in addition to a Medrol Dosepak, without much relief. PAST MEDICAL HISTORY: Significant for hypertension and peptic ulcer disease along with arthritis. PAST SURGICAL HISTORY: Significant for appendectomy, section, left foot surgery, left total knee arthroplasty and right shoulder arthroscopy. CURRENT MEDICATIONS: Carafate, lisinopril, Tylenol No.3, Celebrex. ALLERGIES: SENSITIVITY to BIAXIN AND DILAUDID; however, no berna drug allergies. FAMILY HISTORY: Significant for diabetes, cancer and heart disease. SOCIAL HISTORY: Negative for current tobacco or alcohol use. REVIEW OF SYSTEMS: Sixteen-point review of systems otherwise reviewed and is noncontributory. PHYSICAL EXAMINATION: On examination, the patient is approximately 5 feet tall, 236 pounds of endomorphic habitus. HEENT exam is nonfocal. Neck is supple. On examination of her left shoulder, she is tender about the anterior subacromial space. She has mild crepitus. Active range of motion: Forward elevation 150 degrees, external rotation with arm to side 70 degrees, internal rotation to L2. Motor strength is 4/5 for external rotation and abduction. Impingement test, Neer in test and Speed test are positive. Her distal neurovascular exam appears intact in the left upper extremity. MRI report left shoulder shows evidence of a supraspinatus tear with some retraction. No definite fatty infiltration is noted. IMPRESSION: Symptomatic left rotator cuff tear, acute. RECOMMENDATIONS: I talked to the patient at length regarding her condition along with treatment options. At this point she is having significant pain and weakness after this acute injury. After thorough discussion, she opts to proceed with surgery. We will plan to proceed with left shoulder arthroscopic evaluation with probable rotator cuff repair and possible subacromial decompression. We will likely perform that as an outpatient procedure. Risks and benefits were discussed at length in layman's terms. MMODL / IJN: [id number] /
[~2021-07-14 09:10] MED LIST changes: -ACETAMINOPHEN TAB 500 MG TAB PO PRN; +LACTATED RINGERS 1,000 ML IV SCH; -MELOXICAM 7.5 MG TAB PO PRN; +MIDAZOLAM 2 MG/2 ML VIAL IV PRN; -ROPIVACAINE/EPI/CLONIDINE/KET 50 ML SYRINGE MISCELLANE PRN; -TRANEXAMIC ACID 1,000 MG in SODIUM CHLORIDE 0.9% 100 ML IVPB PRN; +fentaNYL (PF) 50 MCG/ML 2 ML AMP IV PRN
[2021-07-14 09:39] VITALS: TEMP 97
[2021-07-14] MEDS ORDERED: MIDAZOLAM 2 MG/2 ML VIAL IVP ONE (11:18)
[2021-07-14] MEDS ORDERED: fentaNYL (PF) 50 MCG/ML 2 ML AMP IVP ONE (11:19)
--- NOTE | 2021-07-14 11:30 | P.ANPRN ---
Procedure Note - Anesthesia - Nerve Block Performed Left Interscalene Time Out Performed: Yes (:18) Date of Procedure: 07/14/21 Procedure Start Time: Procedure Stop Time: Location of Patient: PreOp Indication: Acute Post-Operative Pain, Requested by Surgeon (Dr Woodard) Sedation Type: Sedate with meaningful contact maintained Preparation: Sterile Prep Position: Supine Catheter: None Needle Types: Pajunk Needle Gauge: Other (see comment) (22g) Ultrasound used to visualize needle placement: Yes Ultrasound used to observe medication spread: Yes Injectate: 0.5% Ropivacaine (see comment for volume) (20cc) Blood Aspirated: No Pain Paresthesia on Injection Noted: No Resistance on Injection: Normal Image Stored and Saved: Yes Events: Uneventful and Well Tolerated
[2021-07-14] MEDS ORDERED: LIDOCAINE 1% INJ 10MG/ML (20 ML MDV) ONE (12:19)
[2021-07-14] MEDS ORDERED: ePHEDrine 50 MG/ML 1 ML VIAL ONE (12:19)
[2021-07-14] MEDS ORDERED: fentaNYL (PF) 50 MCG/ML 2 ML AMP ONE (12:19)
[2021-07-14] MEDS ORDERED: SUCCINYLCHOLINE CHLORIDE 100 MG/5 ML SYR IV ONE (12:19)
[2021-07-14] MEDS ORDERED: PROPOFOL 10 MG/ML 20 ML VIAL IV ONE (12:19)
[2021-07-14] MEDS ORDERED: PHENYLEPHRINE-0.9% NACL SYG 1,000 MCG/10 ML SYRINGE ONE (12:19)
[2021-07-14] MEDS ORDERED: NEOSTIGMINE 1 MG/ML 10 ML VIAL ONE (12:19)
[2021-07-14] MEDS ORDERED: ROCURONIUM 10 MG/ML (5 ML VIAL) IV ONE (12:19)
[2021-07-14] MEDS ORDERED: ROPIVACAINE 5 MG/ML 30 ML VIAL ONE (12:19)
[2021-07-14] MEDS ORDERED: MIDAZOLAM 2 MG/2 ML VIAL ONE (12:19)
[2021-07-14] MEDS ORDERED: GLYCOPYRROLATE 0.2 MG/ML 2 ML VIAL ONE (12:19)
[2021-07-14] MEDS ORDERED: EPINEPHrine (PF) 1 ML in SODIUM CHLORIDE 0.9% IRRIGATIO 3,000 ML IRRIGATION ONE ×8 (12:24)
--- NOTE | 2021-07-14 13:52 | P.OP ---
Date of Procedure: 07/14/21 Preoperative Diagnosis: Symptomatically left rotator cuff tear Postoperative Diagnosis: 4 cm left rotator cuff tear/high-grade partial-thickness tear long head of the biceps Procedure(s) Performed: Left shoulder arthroscopic subacromial decompression/biceps tenotomy/rotator cuff repair Implants: Arthrex 4.75 mm swivel lock anchor 2, 5.5 mm swivel lock anchor 2 [facility] Surgeon: Josué Woodard Tooler #1: James Sabillon Estimated Blood Loss (ml): 10 Pathology: none sent Condition: stable Disposition: PACU Indications for Procedure: The patient's a 66-year-old female presents with progressive left shoulder pain and weakness after an acute recent injury. A discussion of the risks and benefits of operative intervention versus continued conservative measures was made with patient. She opted to proceed with surgery. Operative risks to include infection, neurovascular injury, development of blood clots, possible tendon rerupture, possible postoperative stiffness and need for subsequent procedures was discussed. Informed consent was obtained. Operative Findings: As below Description of Procedure: The patient was brought to the operating room, and after induction of general anesthesia was placed in a beachchair position. A preoperative interscalene block was placed for postoperative analgesia. I examined the left shoulder. There was no gross block to passive motion or gross glenohumeral instability. The left upper extremity was prepped and draped in normal fashion. The bony outlines the acromion, distal clavicle, and coracoid process were outlined with a skin marker. The glenohumeral joint was inflated with 50 mL of saline utilizing a spinal needle from posterior approach. A posterior portal was made through a 5 mm skin incision 1 cm medial and inferior to the posterior lateral border time. A blunt trocar was used to easily into the joint. Diagnostic arthroscopy was performed. An anterior portal was made just lateral to the coracoid process entering the joint above the subscapularis tendon. The subscapularis tendon appeared to be intact. Anterior labrum was intact. The inferior recess was inspected. The posterior labrum was intact. There was a high-grade partial-thickness tear of the long head of the biceps involving interarticular portion. It was elected to proceed with release at this point. This was released from the superior labrum with electrocautery and was allowed to retract to the bicipital groove. On inspection the rotator cuff, a full- thickness tear involving the supraspinatus and infraspinous was noted with minimal retraction. The arthroscope was placed into the subacromial space. A lateral portal was made 2 centimeters inferior to the anterior lateral border of the acromion. The rotator cuff was then mobilized with a traction suture. This was then easily brought back to the greater tuberosity. The soft tissue on the undersurface of the acromion was debrided with a motorized shaver and electrocautery clearly defining the anterior medial and lateral borders as well as the distal clavicle. An anterior inferior acromioplasty was performed with a motorized alexey starting anterolateral, then extending this posteriorly, then extending this medially. I converted to a flat acromion and this was verified in the posterior and lateral viewing portals. The greater tuberosity was lightly decorticating with a shaver down to a bleeding bony surface. An accessory superior lateral portals made just off the lateral edge of the acromion for anchor placement. 2 anchors were then placed just off the articular surface with the appropriate starting awl. 4.75 mm anchors preloaded with #2 fiber tape were placed. Good purchase was obtained. These fiber tapes were then passed the rotator cuff with a scorpion suture passer. A lateral row was created crisscrossing these tapes. 5.5 mm swivel lock anchors x2 were placed laterally. Good purchase was obtained. Final arthroscopic view showed adequate compression at the footprint. The arthroscope was then removed. The portals were closed with simple 3-0 nylon sutures. A sterile dressing was applied in addition to an abductor brace. The patient was then awoken from general anesthesia and transferred to recovery room in good condition. Blood loss was estimated at 10 mL. No complications were incurred. Sponge and needle counts were correct in the case. James CASTRO assisted and the major components of the case to include arm positioning, anchor placement, and rotator cuff repair.
[2021-07-14] MEDS ORDERED: LACTATED RINGERS 1,000 ML IV ONE ×2 (14:15)
[2021-07-14 14:44] VITALS: RESP 16
[2021-07-14 15:15] VITALS: BP 131/75; PULSE 64
== END 2021-07-14 15:49 | disposition home or self-care (01) ==
LOC: OR 09:10
PROVIDERS: ATTEND Orthopaedic Surgery
DX: S46.012A Strain of muscle(s) and tendon(s) of the rotator cuff of left shoulder, initial encounter (principal); S46.112A Strain of muscle, fascia and tendon of long head of biceps, left arm, initial encounter; W19.XXXA Unspecified fall, initial encounter; Y92.009 Unspecified place in unspecified non-institutional (private) residence as the place of occurrence of the external cause; I10 Essential (primary) hypertension; R01.1 Cardiac murmur, unspecified; G43.909 Migraine, unspecified, not intractable, without status migrainosus; K21.9 Gastro-esophageal reflux disease without esophagitis; M19.90 Unspecified osteoarthritis, unspecified site; Z87.11 Personal history of peptic ulcer disease; Z98.891 History of uterine scar from previous surgery; Z96.652 Presence of left artificial knee joint; Z98.890 Other specified postprocedural states; Z90.49 Acquired absence of other specified parts of digestive tract; Z83.3 Family history of diabetes mellitus; Z82.49 Family history of ischemic heart disease and other diseases of the circulatory system; Z79.891 Long term (current) use of opiate analgesic; Z79.899 Other long term (current) drug therapy; Z88.1 Allergy status to other antibiotic agents; Z88.5 Allergy status to narcotic agent
CPT/HCPCS: 64415; 76942; 29826; 29827; C1713 ×4; J2250; J1100; J2710; J0690; J2405; J0171; J2001; J3010; J2795; J2370; J0330; J2704

== ENCOUNTER → 2023-04-02 | Outpatient (CLI) | payer MEDICARE ==
--- NOTE | 2023-04-04 12:57 | MR ---
EXAMINATION TYPE: MR knee RT wo con DATE OF EXAM: 04/02/2023 COMPARISON: Outside right knee x-ray March 11, 2023 HISTORY: Right knee medial pain and swelling for 5 weeks after fall injury. History of left knee tota l replacement surgery. TECHNIQUE: Multiplanar, multisequence images of the knee is performed without IV contrast. FINDINGS: MEDIAL MENISCUS: Increased signal and fraying of the posterior aspect posterior horn suggesting rim r ent tearing. LATERAL MENISCUS: Anterior and posterior horns are intact without tear. CRUCIATE LIGAMENTS: The anterior and posterior cruciate ligaments are intact and unremarkable. COLLATERAL LIGAMENTS: The medial collateral ligament and lateral collateral ligament complex are inta ct. There is fluid surrounding the medial collateral ligament particularly deep fibers. EXTENSOR MECHANISM: Visualized quadriceps and patellar tendons are intact. EFFUSION: Moderate size suprapatellar joint effusion. POPLITEAL CYST: No popliteal/hadley cyst. TRICOMPARTMENT SPACES: Severe narrowing patellofemoral compartment with mild to moderate spurring. Mi ld to moderate narrowing and spurring medial and lateral tibiofemoral compartments. 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 Cartilaginou s loss medial tibial femoral compartment is seen. BONE MARROW SIGNAL: There is heterogeneous increased T2 signal involving the posterior aspect of the patella at sites of full thickness cartilaginous loss. OTHER: Some ill-defined fluid or subcutaneous edema greatest involving the superficial infrapatellar level. There is additional fluid surrounding the posterior knee joint extending inferiorly. IMPRESSION: 1. Tricompartment degenerative changes that are advanced in appearance at the patellofemoral compartm ent as detailed above. 2. MCL sprain injury. 3. Moderate-sized suprapatellar joint effusion. 4. Suspect rim rent type tearing posterior aspect posterior horn medial meniscus.
== END | disposition home or self-care (01) ==
LOC: RADMRIMAIN 19:29
PROVIDERS: ATTEND Orthopaedic Surgery
DX: S83.411A Sprain of medial collateral ligament of right knee, initial encounter (principal); M25.461 Effusion, right knee; M17.11 Unilateral primary osteoarthritis, right knee

== ENCOUNTER 2023-05-24 08:07 | Day surgery (SDC) | payer MEDICARE ==
--- NOTE | 2023-05-23 08:22 | P.HPOR ---
History of Present Illness H&P Date: 05/23/23 Chief Complaint: Right knee pain The patient is a 67-year-old female who presents with right knee pain after initial injury getting of February of this year. She twisted her knee going up the stairs. She's had pain ever since. She notes anterior /medial pain worse with weightbearing activities. She is having night symptoms. She has intermittent buckling. She tried medications along with an injection without much relief. She's been limping. Review of Systems As per HPI Past Medical History Past Medical History: GERD/Reflux, Hypertension Additional Past Medical History / Comment(s): SEASONAL ALLERGIES. STRESS INCONTINENT History of Any Multi-Drug Resistant Organisms: None Reported Past Surgical History: Appendectomy, Section, Orthopedic Surgery Additional Past Surgical History / Comment(s): LEFT KNEE ARTHOSCOPY. ARTHOSCOPY freddy SHOULDER. ORIF LEFT FOOT, HARDWARE REMOVED. Past Anesthesia/Blood Transfusion Reactions: No Reported Reaction Additional Past Anesthesia/Blood Transfusion Reaction / Comment(s): BROTHER HAS LOW TOLERANCE FOR ANESTHESIA. Smoking Status: Never smoker - Past Family History Mother Family Medical History: Cancer Brother(s) Family Medical History: Cancer Mother Brother(s) Family Medical History: Cancer Additional Family Medical History / Comment(s): BROTHER, LUNG. MOM, KIDNEY Medications and Allergies Home Medications Medication Instructions Recorded Confirmed Type Acetaminophen-Codeine 300-30mg 1 - 2 tab PO DIRECTED PRN 11/10/20 05/21/23 History [Tylenol w/codeine #3] Lisinopril-Hctz 20-12.5 mg 1 tab PO QAM 11/10/20 05/21/23 History [Zestoretic 20-12.5] Loratadine-Pseudoeph 10-240 mg 1 tab PO DAILY PRN 11/10/20 05/21/23 History [Claritin-D 24 Hour] Multivitamins, Thera [Multivitamin 1 tab PO DAILY 11/10/20 05/21/23 History (formulary)] Omeprazole [PriLOSEC] 20 mg PO AC-BRKFST 11/10/20 05/21/23 History Sucralfate [Carafate] 0.5 gm PO DIRECTED PRN 11/10/20 05/21/23 History Amoxicillin 875 mg PO Q12HR 05/21/23 05/21/23 History Allergies Allergy/AdvReac Type Severity Reaction Status Date / Time clarithromycin [From Biaxin] Allergy Nausea Verified 05/21/23 11:57 hydromorphone [From Dilaudid] Allergy passed Verified 05/21/23 11:57 out, blood pressure dropped Physical Examination - Knee right Appearance: effusion Effusion grade: trace Tenderness with palpation: anterior, medial Pain: throughout ROM Gait: limping ROM: extension: -15 degrees ROM: flexion: 90 degrees Crepitus with motion: Yes Strength: extension: 5/5 Strength: flexion: 5/5 Meniscal tests: medial meniscal tests: positive, medial joint line pain: positive Results The patient is a well-developed well-nourished female approximately 5 foot 3, 240 pounds of endomorphic habitus. HEENT exam is nonfocal, neck is supple. She has painless passive motion of her right hip. Straight leg raise is negative. She's tender about the medial joint line of the right knee. Collaterals are stable, Raghav is negative, Breana's elicits medial pain. Her distal neurovascular appears intact in the right lower extremity - Diagnostic results Knee MRI: image reviewed (MRI of the right knee shows evidence of a posterior medial meniscal tear.) Assessment and Plan Assessment: Right knee internal derangementsymptomatic medial meniscal tear Right knee moderate tricompartmental osteoarthrosis Obesity Plan: I talked to the patient at length regarding her condition along with treatment options. At this point she is quite syndromatic having both pain and mechanical symptoms after this acute injury despite conservative measures. After a thorough discussion she opted to proceed with surgery. We'll plan to proceed with right knee arthroscopy with probable partial medial meniscectomy. Risks and benefits were discussed at length in layman's terms. We will likely perform as an outpatient procedure.
[~2023-05-24 08:07] MED LIST changes: -fentaNYL (PF) 50 MCG/ML 2 ML AMP IV PRN
[2023-05-24] MEDS ORDERED: ONDANSETRON 4 MG/2 ML VIAL IVP ONE (08:49)
[2023-05-24] MEDS ORDERED: DEXAMETHASONE SOD PHOSPHATE 4 MG/ML 1 ML VIAL IVP ONE (08:49)
[2023-05-24] MEDS ORDERED: fentaNYL (PF) 50 MCG/ML 2 ML AMP ONE (09:29)
[2023-05-24] MEDS ORDERED: KETOROLAC 15 MG/ML 1 ML VIAL ONE (09:29)
[2023-05-24] MEDS ORDERED: MIDAZOLAM 2 MG/2 ML VIAL ONE (09:29)
[2023-05-24] MEDS ORDERED: PROPOFOL 10 MG/ML 20 ML VIAL IV ONE (09:29)
[2023-05-24] MEDS ORDERED: LIDOCAINE 1% INJ 10MG/ML (20 ML MDV) ONE (09:29)
[2023-05-24] MEDS ORDERED: EPINEPHrine (PF) 1 ML in SODIUM CHLORIDE 0.9% IRRIGATIO 3,000 ML IRRIGATION ONE (09:47)
--- NOTE | 2023-05-24 10:24 | P.OP ---
Date of Procedure: 05/24/23 Preoperative Diagnosis: Right knee medial meniscal tear Postoperative Diagnosis: Same in addition to middle one third lateral meniscal tear Procedure(s) Performed: Right knee arthroscopic partial medial meniscectomy/partial lateral meniscectomy Anesthesia: CURTISA Surgeon: Josué Woodard Estimated Blood Loss (ml): 10 Pathology: none sent Condition: stable Disposition: PACU Indications for Procedure: The patient is a 68-year-old female who presents with progressive right knee pain and mechanical symptoms despite conservative measures. A discussion of the risks and benefits of operative intervention versus continued conservative measures was made with patient. She opted to proceed with surgery. Operative risks to include infection, neurovascular injury, development of blood clots, possible incomplete resolution of symptoms, possible worsening symptoms and need for subsequent procedures was discussed. Informed consent was obtained. Operative Findings: As below Description of Procedure: The patient was brought to the operating room, and after induction of general anesthesia examined the right knee. Collaterals were stable, Raghav was negative, and posterior drawer was negative. The right lower extremity was prepped and draped in a normal fashion. A superior lateral portal was made through a 3 mm skin incision superior and lateral to the patella. This was used for outflow. A lateral portal was made through a 5 mm vertical skin incision lateral to the patella tendon above the joint line. Diagnostic arthroscopy was performed. On inspection of the medial compartment, a complex tear involving the posterior horn of the medial meniscus in the white-red junction was noted. This was debrided back to stable base with straight baskets and a motorized shaver. The remaining medial meniscus was stable and intact. Grade 2-3 chondral changes were noted diffusely involving the medial compartment. On inspection of the notch, the anterior cruciate ligament appeared to be intact. On inspection of the lateral compartment, there was a radial tear involving the middle one third of the lateral meniscus in the white-white junction. This was debrided back to stable base with a motorized shaver. Grade 2 chondral changes was noted involving the distal medial portion of the lateral femoral condyle. On inspection of the patellofemoral articulation there was grade 2-3 chondral changes diffusely. The gutters were clear debris. The knee was then thoroughly irrigated. The portals were closed with Steri-Strips. A sterile dressing was applied in addition to a compression stocking. The patient was awoken from general anesthesia and transferred to recovery room in good condition. Blood loss was estimated at 10 mL. No complications were incurred.
[2023-05-24] MEDS: fentaNYL (PF) 50 MCG/ML 2 ML AMP IV PRN ×2 (10:29→10:33)
[2023-05-24] MEDS: fentaNYL (PF) 50 MCG/ML 2 ML AMP IVP ONE ×2 (10:42→10:47)
[2023-05-24 10:44] VITALS: TEMP 97
[2023-05-24] MEDS ORDERED: LACTATED RINGERS 1,000 ML IV ONE (10:48)
[2023-05-24] MEDS ORDERED: HYDROcodone/APAP 5-325MG 1 EACH TAB ONE (12:10)
[2023-05-24] MEDS ORDERED: HYDROcodone/APAP 5-325MG 1 EACH TAB PO ONE (12:10)
[2023-05-24 12:23] VITALS: BP 164/72; PULSE 68; RESP 20
== END 2023-05-24 12:57 | disposition home or self-care (01) ==
LOC: OR 08:07
PROVIDERS: ATTEND Orthopaedic Surgery
DX: S83.241A Other tear of medial meniscus, current injury, right knee, initial encounter (principal); S83.281A Other tear of lateral meniscus, current injury, right knee, initial encounter; K21.9 Gastro-esophageal reflux disease without esophagitis; I10 Essential (primary) hypertension; F43.9 Reaction to severe stress, unspecified; J30.2 Other seasonal allergic rhinitis; M19.90 Unspecified osteoarthritis, unspecified site; Z80.1 Family history of malignant neoplasm of trachea, bronchus and lung; Z80.51 Family history of malignant neoplasm of kidney; Z79.2 Long term (current) use of antibiotics; Z79.899 Other long term (current) drug therapy; Z88.5 Allergy status to narcotic agent; Z88.1 Allergy status to other antibiotic agents; Z90.49 Acquired absence of other specified parts of digestive tract; Z98.890 Other specified postprocedural states; X50.1XXA Overexertion from prolonged static or awkward postures, initial encounter
CPT/HCPCS: 29880; J2250; J1100; J0690; J2405; J0171; J2001; J3010; J1885; J2704